=== PATIENT | male | born 1995 | race African-American/Black ===

== ENCOUNTER → 2021-05-10 | Outpatient (REF) | LOC: M PLAIMG 10:30 | PROVIDERS: ATTEND Internal Medicine | DX: M79.672 Pain in left foot (principal) ==

== ENCOUNTER 2021-05-30 01:06 | Emergency (ER) | payer OTHER ==
[~2021-05-30] VITALS: Ht 175.3 cm; Wt 86.4 kg
[2021-05-30 02:21] LABS: RSV AMPLIFICATION NEGATIVE (NEGATIVE)
[2021-05-30] MEDS ORDERED: ACETAMINOPHEN TAB 650MG DOSE (2X325MG) PO ONE (06:00)
[2021-05-30 07:42] VITALS: BP 123/56
== END 2021-05-30 08:39 | disposition home or self-care (01) ==
LOC: M ED 01:06
DX: U07.1 COVID-19 (principal); G43.909 Migraine, unspecified, not intractable, without status migrainosus